=== PATIENT | female | born 1995 | race African-American/Black ===

== ENCOUNTER 2022-05-03 13:33 | Emergency (ER) | payer MEDICAID ==
[~2022-05-03] VITALS: Ht 160 cm; Wt 63.0 kg
[2022-05-03 13:50] VITALS: BP 127/91
[2022-05-03] MEDS ORDERED: LIDOCAINE HCL 1% 20ML VIAL (Pyxis) INJ INFIL ONE (15:15)
[2022-05-03] MEDS ORDERED: LIDOCAINE HCL 1% 10 MG/ML 10ML VIAL IJ NR (15:30)
== END 2022-05-03 16:20 | disposition home or self-care (01) ==
LOC: ER 13:33
DX: T16.1XXA Foreign body in right ear, initial encounter (principal); Z98.890 Other specified postprocedural states; X58.XXXA Exposure to other specified factors, initial encounter; Y93.89 Activity, other specified; Y92.89 Other specified places as the place of occurrence of the external cause; Y99.8 Other external cause status
CPT/HCPCS: 69200; 99284; J3490